=== PATIENT | male | born 1950 | race Caucasian/White ===

== ENCOUNTER → 2016-06-17 | Outpatient (CLI) | payer OTHER ==
--- NOTE | 2016-06-17 16:19 | DI ---
LOCATION OF DICTATION: [facility] EXAM: CHEST, PA LATERAL HISTORY: ITS.REASON: DIAGNOSTIC TESTING COMPARISON: No prior studies available for comparison. FINDINGS: The heart size is normal. The mediastinal configuration is unremarkable. Limited depth of inspiration. There are no consolidating opacities or pleural effusions. There is no evidence for a pneumothorax. The osseous structures are within normal limits. IMPRESSION: No acute cardiopulmonary abnormality is identified. .
--- NOTE | 2016-06-17 16:36 | ECHOF ---
DATE OF PROCEDURE 06/17/2016 INDICATION This is a two-dimensional echo with spectral Doppler, color-flow, and M-mode. It was obtained in a patient with ischemic heart disease. DESCRIPTION OF PROCEDURE Left atrial dimension is normal. Left ventricular end-diastolic dimension is normal. Left ventricular wall thickness is normal. LV systolic function is normal with ejection fraction of 72%. Right atrium is normal. Right ventricle is normal. Aortic root dimension is normal. Mitral annulus is calcified. Mitral valve leaflets are normal. Aortic valve appears to be a trileaflet structure with no stenosis or insufficiency. Tricuspid valve shows trace of tricuspid regurgitation with normal estimated pulmonary artery systolic pressure of 18. Pulmonary valve shows no pulmonary insufficiency. There is no pericardial effusion. IMPRESSION 1. Normal LV systolic function with ejection fraction of 72%. 2. Mitral annulus calcification. 3. Trace of tricuspid regurgitation with normal estimated pulmonary artery systolic pressure of 18. MTDD
== END ==
LOC: IMA 12:57
DX: Z02.89 Encounter for other administrative examinations (principal)
CPT/HCPCS: 93306